=== PATIENT | female | born 1970 | race Caucasian/White ===

== ENCOUNTER 2017-01-31 12:05 | Outpatient (CLI) | payer BC ==
--- NOTE | 2017-01-31 16:15 | Diagnostic Imaging Report ---
Indication: SCREEN Technique: Bilateral Craniocaudal and mediolateral oblique views were obtained. Comparison: 02/02/2016, 09/08/2014 Findings: The breasts are extremely dense, which decreases the sensitivity of mammography. No parenchymal asymmetry nor architectural distortion. There are benign calcifications bilaterally. 3 biopsy marker clips are seen in left breast, one in the right breast.. No dominant masses nor suspicious clustered microcalcifications. No skin thickening nor nipple retraction. No axillary adenopathy. No significant interim change. Impression: No mammographic evidence of malignancy. Routine annual rescreening recommended. BI-RADS category 2-benign.
== END 2017-01-31 14:05 | disposition home or self-care (01) ==
LOC: MAMMO 12:05
DX: Z12.31 Encounter for screening mammogram for malignant neoplasm of breast (principal)
CPT/HCPCS: 77067